=== PATIENT | female | born 1995 | race Caucasian/White ===

== ENCOUNTER → 2020-02-04 | Outpatient (CLI) | payer BC ==
--- NOTE | 2020-02-04 20:00 | CT ---
EXAMINATION TYPE: CT sinus wo con DATE OF EXAM: 02/04/2020 COMPARISON: None HISTORY: 24-year-old female Chronic sinusitis and headaches. CT DLP: 740.4 mGycm Automated exposure control for dose reduction was used. TECHNIQUE: Noncontrast axial views of the paranasal sinuses were obtained. Coronal reconstructions pe rformed. FINDINGS: PARANASAL SINUSES: The frontal, ethmoid, maxillary and sphenoid sinuses are clear and well pneumatized. There is no mucosal thickening or air-fluid level. Reactive nuvia- osteogenesis is not seen. There is no destruction of the osseous braxton of the paranasal sinuses. THE NASAL CAVITY: The osteomeatal complexes are patent. Minimal rightward undulation of the anterior nasal septum. The imaged brain and orbits are normal in appearance. Mastoid air cells and middle ear cavities are well pneumatized. Reformatted images confirm above findings. IMPRESSION: Minimal rightward undulation of anterior nasal septum. No significant paranasal sinus disease.
== END | disposition home or self-care (01) ==
LOC: RADCTMAIN 15:40
PROVIDERS: ATTEND Otolaryngology
DX: J34.89 Other specified disorders of nose and nasal sinuses (principal)
CPT/HCPCS: 70486